=== PATIENT | female | born 1990 | race African-American/Black ===

== ENCOUNTER 2019-01-23 20:12 | Observation (INO) | payer OTHER ==
[~2019-01-23 20:12] MED LIST: ACET-285 PO; BUS10T PO; NAPR-223 PO; NOR10T PO; QUET50TA PO; SERT25TA84 PO
[2019-01-23] MEDS ORDERED: PREN-96 PO (20:51)
[2019-01-23 21:41] LABS: Alcohol, Urine < 3.0 mg/dL (0-5); Amphetamine Screen, Urine NEGATIVE (NEGATIVE); Barbiturate Scree,Urine NEGATIVE (NEGATIVE); Benzodiazephine Screen, Urine NEGATIVE (NEGATIVE); Cannabinoid Screen, Urine NEGATIVE (NEGATIVE); Cocaine Screen, Urine NEGATIVE (NEGATIVE); Opiate Scree,Urine NEGATIVE (NEGATIVE); Phencyclidine Screen, Urine NEGATIVE (NEGATIVE)
[2019-01-23 21:43] LABS: Urine Amorphous Crystal FEW /hpf (None Seen); Urine Bacteria FEW /hpf (None Seen); Urine Blood 2+ /uL (Negative); Urine Specific Gravity 1.015 (1.001-1.035); Urine WBC 10 /hpf (0 - 5)
== END 2019-01-23 22:20 | disposition home or self-care (01) | DRG 566 ==
LOC: LDRP 20:12
PROVIDERS: ADMIT Specialist; ATTEND Specialist
DX: O00.01 Abdominal pregnancy with intrauterine pregnancy (principal); O26.892 Other specified pregnancy related conditions, second trimester; O46.92 Antepartum hemorrhage, unspecified, second trimester; R10.31 Right lower quadrant pain; Z3A.20 20 weeks gestation of pregnancy
CPT/HCPCS: 59025; 76805; 80307; 81001; 81002; 94760; G0378